=== PATIENT | female | born 1960 | race Caucasian/White ===

== ENCOUNTER → 2017-06-15 | Outpatient (CLI) | payer OTHER | LOC: CIMAGING 09:18 | PROVIDERS: ATTEND Family Medicine | DX: J98.8 Other specified respiratory disorders (principal); R05 Cough | CPT/HCPCS: 71020-PO ==

== ENCOUNTER → 2018-09-20 | Outpatient (CLI) | payer OTHER | LOC: CIMAGING 10:25 | PROVIDERS: ATTEND Family Medicine | DX: Z12.31 Encounter for screening mammogram for malignant neoplasm of breast (principal) ==

== ENCOUNTER → 2018-11-30 | Outpatient (CLI) | payer OTHER | LOC: EMCIMAGING 14:22 | PROVIDERS: ATTEND Nurse Practitioner Family | DX: M25.521 Pain in right elbow (principal) ==

== ENCOUNTER → 2018-12-11 | Outpatient (CLI) | payer OTHER | LOC: FIMAGING 11:03 | PROVIDERS: ATTEND Family Medicine | DX: M25.561 Pain in right knee (principal); M79.661 Pain in right lower leg; W19.XXXA Unspecified fall, initial encounter ==

== ENCOUNTER → 2018-12-13 | Outpatient (CLI) | payer OTHER | LOC: EMCIMAGING 12:34 | PROVIDERS: ATTEND Family Medicine | DX: S82.091A Other fracture of right patella, initial encounter for closed fracture (principal) | CPT/HCPCS: 73721-PN ==